=== PATIENT | male | born 1965 | race American Indian/Alaskan Native ===

== ENCOUNTER 2016-12-14 12:12 | Day surgery (SDC) | payer MEDICARE ==
[2016-12-14] MEDS ORDERED: WATER FOR IRRIG STERILE IR ONE (15:59)
[2016-12-14] MEDS ORDERED: NACL 0.9% 1000 ML 1,000 ML IV SCH (16:00)
[2016-12-14] MEDS ORDERED: DIPRIVAN 10 MG/ML IV ONE ×3 (16:01→16:02)
--- NOTE | 2016-12-14 16:01 | Anesthesia Consultation ---
Anesthesia Consult and Med Hx Date of service: 12/14/16 - Airway Anesthetic Teeth Evaluation: Good ROM Head & Neck: Adequate Mental/Hyoid Distance: Adequate Mallampati Class: Class II Intubation Access Assessment: Probably Good - Pulmonary Exam CTA: Yes - Cardiac Exam Cardiac Exam: RRR - Pre-Operative Health Status ASA Pre-Surgery Classification: ASA3 Proposed Anesthetic Plan: MAC - Pulmonary Hx Smoking: Yes Hx Sleep Apnea: No (HIGH RISK) - Cardiovascular System Hx Hypertension: Yes - Central Nervous System CVA: Yes (LEFT CVA) Hx Psychiatric Problems: No - Gastrointestinal Hx Gastroesophageal Reflux Disease: Yes - Endocrine Hx Non-Insulin Dependent Diabetes: Yes - Other Systems Hx Alcohol Use: Yes Hx Substance Use: No Hx Cancer: No
--- NOTE | 2016-12-14 16:02 | Anesthesia Day of Surgery ---
Anesthesia Day of Surgery - Day of Surgery Patient Examined: Yes Patient H&P Reviewed: Yes Patient is NPO: Yes
--- NOTE | 2016-12-14 17:06 | Operative Report ---
Operative Report Operative Report: Date of procedure: 12/14/2016 Procedure: Colonoscopy. Attending physician: Rene Moctezuma MD Signal Worker: Rene Moctezuma MD Indication: Patient is a 51-year-old male who presents for colorectal cancer screening. A colonoscopy serves to evaluate patient for colorectal cancer screening. Consent: Informed consent was obtained after advising the patient and family regarding nature of this procedure, its indications, potential benefits as well as possible complications including but not limited to bleeding perforation and adverse reaction to medication, infection as well as other cardiopulmonary complications. An informed written and verbal consent was then obtained after due opportunity was provided for questions and answers. Monitoring: Patient was monitored continuously with pulse oximetry and electrocardiographic recordings as well as blood pressure recordings. Vital signs remained stable throughout this procedure with no untoward events. Preoperative assessment: Patient was assessed immediately prior to this procedure for capacity to tolerate monitored anesthesia care and moderate sedation as well as general anesthesia. Patient's ASA classification is 2, Mallampati class is 2, Hyomental distance is 3. Instrument: [email or web address] videocolonoscope. Medications: Propofol given intravenously in divided doses. For details please refer to anesthesia records. Description of procedure: Patient was placed in the left lateral decubitus position after achieving sedation, a digital rectal examination was performed following which the colonoscope was introduced into the anal verge and advanced to the cecum which was identified by the cecal valve, the appendiceal orifice, as well as by the cecal strap and direct transillumination. The colonoscope was subsequently withdrawn with careful inspection of all mucosal surfaces. Patient tolerated this procedure well and was subsequently taken to the recovery room. The following findings were noted. Findings: Patient had significant diverticulosis involving the sigmoid and descending colon. Patient had substantial retained stool seen in all segments of the colon with stool density varying from thick liquid stool to some formed stool. There were however no gross mucosal abnormalities seen. There was densely adherent stool seen in the most proximal aspect of the ascending colon and also in the cecum. This made visualization of this area suboptimal. On the retroflex view at the anal verge, patient had prominent friable internal hemorrhoids. Patient tolerated the procedure well with no untoward events. Impression: Diverticular disease of the colon. Retained stool. Internal hemorrhoids Plan: High-fiber diet. PRN stool softeners. Repeat colonoscopy in 1 year due to poor colonoscopic preparation.
--- NOTE | 2016-12-14 17:07 | Discharge Summary ---
Short Stay Discharge Plan Activity: advance as tolerated Weight Bearing Status: Non-Weight Bearing Diet: regular Follow up with: KAREN MALIK MD [Primary Care Provider] - 7 Days
[2016-12-14] MEDS ORDERED: NORMODYNE IV ONE ×2 (17:23→17:31)
--- NOTE | 2016-12-14 18:21 | Post Anesthesia Evaluation ---
- Post Anesthesia Evaluation Patient Participated: Yes Airway Patent: Yes Stable Respiratory Function: Yes Nausea/Vomiting: No Temp > 96.8F: Yes Pain Manageable: Yes Adequeate Hydration: Yes Anesthesia Complications: No
[2016-12-14 18:25] VITALS: BP 167/103
== END 2016-12-14 12:13 | disposition home or self-care (01) ==
LOC: GIO 12:12
PROVIDERS: ATTEND Internal Medicine Gastroenterology
DX: Z12.11 Encounter for screening for malignant neoplasm of colon (principal); K57.30 Diverticulosis of large intestine without perforation or abscess without bleeding; K64.8 Other hemorrhoids; I10 Essential (primary) hypertension; K21.9 Gastro-esophageal reflux disease without esophagitis; F17.200 Nicotine dependence, unspecified, uncomplicated; E11.9 Type 2 diabetes mellitus without complications; Z86.73 Personal history of transient ischemic attack (TIA), and cerebral infarction without residual deficits; Z72.89 Other problems related to lifestyle; Z79.899 Other long term (current) drug therapy; Z79.84 Long term (current) use of oral hypoglycemic drugs
CPT/HCPCS: 82962; G0121; J2704; J7030